=== PATIENT | female | born 1990 | race Caucasian/White ===

== ENCOUNTER 2023-12-08 11:40 | Emergency (ER) | payer OTHER ==
[~2023-12-08] VITALS: Ht 162.6 cm; Wt 104.3 kg
[2023-12-08 11:42] VITALS: BP 152/99; PULSE 89; RESP 22; TEMP 97.6; O2SAT 98
[2023-12-08 12:08] VITALS: O2SAT 98
[2023-12-08 12:15] VITALS: O2SAT 98
[2023-12-08 12:18] LABS: BASOPHILS # (AUTO) 0.1 K/uL (0.00-0.22); BASOPHILS % (AUTO) 0.6 % (0.0-2.0); EOSINOPHILS # (AUTO) 0.1 K/uL (0-0.4); EOSINOPHILS % (AUTO) 0.7 % (0.0-4.0); HEMATOCRIT 31.4 % (36-48); HEMOGLOBIN 10.2 g/dL (12.0-16.0); LYMPHOCYTES # (AUTO) 2.1 K/uL (2.5-16.5); LYMPHOCYTES % (AUTO) 19.1 % (20.5-51.1); MEAN CORPUSCULAR HEMOGLOBIN 27 pg (27-31); MEAN CORPUSCULAR HGB CONC 32 g/dL (33-37); MEAN CORPUSCULAR VOLUME 83.9 fL (80-94); MONOCYTES # (AUTO) 0.7 K/uL (0.8-1.0); MONOCYTES % (AUTO) 6.2 % (1.7-9.3); NEUTROPHILS # (AUTO) 8.2 K/uL (1.8-7.7); NEUTROPHILS % (AUTO) 73.4 % (42.2-75.2); PLATELET COUNT (AUTO) 202 K/uL (140-450); RED BLOOD CELL COUNT(AUTO) 3.74 MIL/uL (4.20-5.40); RED CELL DISTRIBUTION WIDTH 15.8 % (11.6-13.7); WHITE BLOOD COUNT (AUTO) 11.2 K/uL (4.8-10.8)
[2023-12-08 12:36] LABS: ANION GAP 10.6 (8-16); CALCIUM 8.1 mg/dL (8.5-10.1); CARBON DIOXIDE 26.8 mmol/L (21-32); CREATININE 0.7 mg/dL (0.6-1.3); POTASSIUM 3.4 mmol/L (3.5-5.1)
[2023-12-08 12:38] LABS: ALBUMIN 3.1 g/dL (3.4-5.0); BILIRUBIN,DIRECT 0.1 mg/dL (0.0-0.3); TOTAL BILIRUBIN 0.3 mg/dL (0.0-1.0); TOTAL PROTEIN, SERUM 6.3 g/dL (6.4-8.2)
[2023-12-08] MEDS: ACETAMINOPHEN EXTRA STRENGTH 500 MG TAB PO ONE (12:46)
[2023-12-08] MEDS: ONDANSETRON 4 MG/2 ML VIAL IVP ONE ×2 (12:50→14:33)
[2023-12-08] MEDS: KETOROLAC 30 MG/ML VIAL IVP ONE (12:52)
[2023-12-08 13:27] LABS: APPEARANCE,URINE CLEAR (CLEAR); BILIRUBIN,URINE NEGATIVE (NEGATIVE); BLOOD, URINE NEGATIVE (NEGATIVE); COLOR,URINE YELLOW (YELLOW); NITRITE, URINE NEGATIVE (NEGATIVE); PH,URINE 7.5 (5.0-9.0); PROTEIN,URINE NEGATIVE (NEGATIVE); UGLUCOSE NEGATIVE (NEGATIVE)
[2023-12-08 13:28] LABS: LEUKOCYTE ESTERASE ,URINE NEGATIVE (NEGATIVE)
[2023-12-08] MEDS: MORPHINE SULFATE 4 MG/ML SYR IVP ONE ×2 (14:05→14:34)
[2023-12-08] MEDS ORDERED: MIRABULK PO (14:21)
[2023-12-08] MEDS ORDERED: ONDA-188 PO (14:22)
[2023-12-08] MEDS ORDERED: HYDR-5080 PO (14:24)
== END 2023-12-08 14:55 | disposition home or self-care (01) ==
LOC: MED 11:40
DX: R10.84 Generalized abdominal pain (principal); N94.6 Dysmenorrhea, unspecified; F11.20 Opioid dependence, uncomplicated; D64.9 Anemia, unspecified; Z98.890 Other specified postprocedural states; Z79.899 Other long term (current) drug therapy
CPT/HCPCS: 36415; 74176; 80048; 80076; 81003; 81025; 83690; 85025; 96374; 96375; 96376; 99285; J1885; J2270; J2405